=== PATIENT | female | born 1965 | race African-American/Black ===

== ENCOUNTER 2017-07-19 09:43 | Inpatient (IN) | payer BC ==
[~2017-07-19] VITALS: Ht 167.6 cm; Wt 124.7 kg
[2017-07-19] MEDS ORDERED: IPRATROPIUM/ALBUTEROL 0.5-3(2.5)MG/3ML NEB HHN ONE (10:15)
[2017-07-19 10:59] LABS: BASOPHILS % 0.9 % (0.0-2.0); EOSINOPHILS % 6.2 % (0.0-5.0); HEMATOCRIT. 38.9 % (36.0-48.0); HEMOGLOBIN. 12.5 g/dL (12.0-16.0); LYMPHOCYTES % 28.6 % (20.0-50.0); MEAN CORPUSCULAR HEMOGLOBIN 25.2 pg (28.0-32.0); MEAN CORPUSCULAR VOLUME 78.3 fL (81.0-99.0); MEAN PLATELET VOLUME 8.9 fl (7.4-10.4); MONOCYTES % 8.8 % (2.0-8.0); NEUTROPHILS % 55.5 % (40.0-76.0); PLATELET 210 x1000/uL (130-400); RED BLOOD CELL COUNT 4.97 mill/uL (4.2-5.4); RED CELL DISTRIBUTION WIDTH 14.8 % (11.6-14.6)
[2017-07-19 11:17] LABS: CARBON DIOXIDE 27 mEq/L (21-32); CHLORIDE 103 mEq/L (98-107); D-DIMER 0.34 mg/L FEU (<0.50); INR 1.1; PARTIAL THROMBOPLASTIN TIME 27.8 sec (23.4-31.0); PROTHROMBIN TIME 11.1 sec (9.4-11.6); TROPONIN I 0.09 ng/mL (0.00-0.04)
[2017-07-19 11:24] LABS: CLARITY URINE CLOUDY (CLEAR); COLOR URINE YELLOW (YELLOW); GLUCOSE URINE NEGATIVE (NEGATIVE); KETONES URINE NEGATIVE (NEGATIVE); LEUKOCYTE ESTERASE URINE NEGATIVE (NEGATIVE); NITRITE URINE NEGATIVE (NEGATIVE); OCCULT BLOOD URINE NEGATIVE (NEGATIVE); PROTEIN URINE 2+ (NEGATIVE); UROBILINOGEN URINE 0.2 E.U./dL (0.2-1.0)
[2017-07-19 16:39] VITALS: BP 127/77
[2017-07-19] MEDS ORDERED: LABE100T PO (16:57)
[2017-07-19] MEDS ORDERED: ERGO500013 PO (16:57)
[2017-07-19] MEDS ORDERED: AMLO5TAB88 PO (16:57)
[2017-07-19] MEDS ORDERED: LISI40TA4 PO (16:57)
[2017-07-19] MEDS ORDERED: CIPR-264 PO (16:57)
[2017-07-19] MEDS ORDERED: VALS320T2 PO (16:57)
[2017-07-19] MEDS ORDERED: OMEP20CA10 PO (16:57)
[2017-07-19] MEDS ORDERED: CYCL5TAB PO (16:57)
[2017-07-19] MEDS ORDERED: HYDR25TA PO (16:57)
[2017-07-19] MEDS ORDERED: ATOR10TA69 PO (16:57)
[2017-07-19] MEDS ORDERED: ALBUTEROL (0.083%) 2.5MG/3ML NEB HHN PRN (18:45)
[2017-07-19 20:00] VITALS: BP 145/82
[2017-07-19] MEDS ORDERED: HYDR28CR68 TP (20:44)
[2017-07-19] MEDS: ALBUTEROL (0.083%) 2.5MG/3ML NEB HHN SCH (21:14)
[2017-07-19] MEDS: HYDROCHLOROTHIAZIDE 25MG TABLET PO SCH (21:30)
[2017-07-19] MEDS ORDERED: LABETALOL HCL 100MG TABLET PO SCH (21:30)
[2017-07-19] MEDS ORDERED: OMEPRAZOLE 20MG CAPSULE EXTENDED RELEASE PO SCH (22:00)
[2017-07-19] MEDS: AMLODIPINE 5MG TABLET PO SCH (22:08)
[2017-07-19] MEDS: LISINOPRIL 40MG TABLET PO SCH (22:09)
[2017-07-19] MEDS: CYCLOBENZAPRINE 10MG TABLET PO PRN (22:10)
[2017-07-19] MEDS: CEFTRIAXONE 1 G PREMIX 50 ML IV SCH (22:14)
[2017-07-19] MEDS ORDERED: LORAZEPAM 0.5MG TABLET PO PRN (23:00)
[2017-07-19] MEDS ORDERED: ACETAMINOPHEN 325MG TABLET PO PRN (23:00)
[2017-07-19] MEDS ORDERED: CLONIDINE 0.1MG TABLET PO PRN (23:00)
[2017-07-19] MEDS ORDERED: DOCUSATE SODIUM 100MG CAPSULE PO PRN (23:00)
[2017-07-19] MEDS ORDERED: ACETAMINOPHEN 650MG/20.3ML UDC GT PRN (23:00)
[2017-07-19] MEDS ORDERED: MECLIZINE 12.5MG TABLET PO PRN (23:00)
[2017-07-19] MEDS ORDERED: NA PHOS,M-B/NA PHOS,DI-BA ENEMA 118ML PR PRN (23:00)
[2017-07-19] MEDS ORDERED: ONDANSETRON HCL 4MG/2ML VIAL IV PRN (23:00)
[2017-07-19] MEDS ORDERED: MAGNESIUM/ALUMINUM HYDROXIDE/SIMETHICONE 30ML UDC PO PRN (23:00)
[2017-07-19] MEDS ORDERED: ACETAMINOPHEN 650MG SUPP PR PRN (23:00)
[2017-07-19] MEDS ORDERED: DIPHENHYDRAMINE 50MG/ML VIAL IV PRN (23:00)
[2017-07-19] MEDS ORDERED: IPRATROPIUM/ALBUTEROL 0.5-3(2.5)MG/3ML NEB INH PRN (23:00)
[2017-07-20] VITALS: BP 140/88
[2017-07-20] MEDS ORDERED: MAGNESIUM HYDROXIDE 400MG/5ML 30ML UDC PO NR
[2017-07-20] MEDS: FUROSEMIDE 40MG/4ML VIAL IV SCH ×2 (01:00→09:21)
[2017-07-20] MEDS: ALBUTEROL (0.083%) 2.5MG/3ML NEB HHN SCH ×4 (01:01→20:30)
[2017-07-20] MEDS: GUAIFENESIN 200MG/10ML SUGAR FREE UDC PO PRN ×3 (01:05→20:21)
[2017-07-20 04:00] VITALS: BP 129/75
[2017-07-20 05:43] LABS: BASOPHILS % 0.7 % (0.0-2.0); EOSINOPHILS % 6.1 % (0.0-5.0); HEMATOCRIT. 37.5 % (36.0-48.0); HEMOGLOBIN. 12.1 g/dL (12.0-16.0); LYMPHOCYTES % 32.8 % (20.0-50.0); MEAN CORPUSCULAR VOLUME 77.5 fL (81.0-99.0); MEAN PLATELET VOLUME 9.3 fl (7.4-10.4); MONOCYTES % 8.7 % (2.0-8.0); NEUTROPHILS % 51.7 % (40.0-76.0); PLATELET 222 x1000/uL (130-400); RED BLOOD CELL COUNT 4.84 mill/uL (4.2-5.4); RED CELL DISTRIBUTION WIDTH 14.9 % (11.6-14.6)
[2017-07-20 05:49] LABS: CLARITY URINE CLEAR (CLEAR); COLOR URINE YELLOW (YELLOW); GLUCOSE URINE NEGATIVE (NEGATIVE); KETONES URINE NEGATIVE (NEGATIVE); LEUKOCYTE ESTERASE URINE NEGATIVE (NEGATIVE); NITRITE URINE NEGATIVE (NEGATIVE); OCCULT BLOOD URINE NEGATIVE (NEGATIVE); PROTEIN URINE NEGATIVE (NEGATIVE); SPECIFIC GRAVITY URINE 1.012 (1.005-1.030); UROBILINOGEN URINE 0.2 E.U./dL (0.2-1.0)
[2017-07-20] MEDS ORDERED: OMEPRAZOLE 20MG CAPSULE EXTENDED RELEASE PO SCH (06:45)
[2017-07-20 06:58] LABS: CARBON DIOXIDE 28 mEq/L (21-32); CHLORIDE 97 mEq/L (98-107)
[2017-07-20 07:04] LABS: CREATINE KINASE 101 IU/L (26-192); HDL CHOLESTEROL 41 mg/dL (40-59); LDL CHOLESTEROL 123 mg/dL (5-100)
[2017-07-20 07:08] LABS: *AMPHETAMINES SCREEN URINE NEGATIVE (NEGATIVE); *BARBITURATES SCREEN URINE NEGATIVE (NEGATIVE); *BENZODIAZEPINES SCREEN URINE NEGATIVE (NEGATIVE); *COCAINE SCREEN URINE NEGATIVE (NEGATIVE); CANNABINOID URINE SCREEN NEGATIVE (NEGATIVE); METHADONE URINE SCREEN NEGATIVE (NEGATIVE); OPIATES URINE SCREEN NEGATIVE (NEGATIVE); PHENCYCLIDINE URINE SCREEN NEGATIVE (NEGATIVE)
[2017-07-20 08:00] VITALS: BP 132/91
[2017-07-20] MEDS ORDERED: POTASSIUM CHLORIDE 20MEQ TABLET SR PO SCH (08:30)
[2017-07-20] MEDS: HYDROCHLOROTHIAZIDE 25MG TABLET PO SCH ×3 (09:00→20:31)
[2017-07-20] MEDS: AMLODIPINE 5MG TABLET PO SCH (09:00)
[2017-07-20] MEDS: LISINOPRIL 40MG TABLET PO SCH ×2 (09:19→20:18)
[2017-07-20] MEDS: LABETALOL HCL 100MG TABLET PO SCH ×2 (09:19→20:18)
[2017-07-20] MEDS: ENOXAPARIN 30MG/0.3ML SYR SUBCUT SCH ×2 (09:21→20:19)
[2017-07-20 12:00] VITALS: BP 96/56
[2017-07-20] MEDS ORDERED: CEPH-569 PO (12:06)
[2017-07-20 16:00] VITALS: BP 122/78
[2017-07-20 16:51] LABS: TROPONIN I 0.09 ng/mL (0.00-0.04)
[2017-07-20 20:00] VITALS: BP 135/90
[2017-07-20] MEDS: CEFTRIAXONE 1 G PREMIX 50 ML IV SCH (20:17)
[2017-07-20] MEDS: HYDROCODONE/ACETAMINOPHEN 5/325MG TABLET PO PRN (20:19)
[2017-07-20] MEDS: SODIUM CHLORIDE 0.9% INJ 3ML FLUSH IVF SCH (20:20)
[2017-07-20] MEDS: THROAT LOZENGES-BENZOCAINE/MENTH/CETYLPYRD CL LOZENGES MM PRN (20:21)
[2017-07-20] MEDS ORDERED: ATORVASTATIN CALCIUM 10MG TABLET PO SCH (21:00)
[2017-07-21] VITALS: BP 100/59
[2017-07-21] MEDS: ALBUTEROL (0.083%) 2.5MG/3ML NEB HHN SCH ×3 (00:38→13:59)
[2017-07-21] MEDS: HYDROCODONE/ACETAMINOPHEN 5/325MG TABLET PO PRN (01:26)
[2017-07-21 04:00] VITALS: BP 127/80
[2017-07-21 05:41] LABS: BASOPHILS % 0.9 % (0.0-2.0); HEMATOCRIT. 35.6 % (36.0-48.0); HEMOGLOBIN. 11.4 g/dL (12.0-16.0); LYMPHOCYTES % 37.5 % (20.0-50.0); MEAN CORPUSCULAR VOLUME 78.2 fL (81.0-99.0); MEAN PLATELET VOLUME 9.2 fl (7.4-10.4); MONOCYTES % 9.7 % (2.0-8.0); NEUTROPHILS % 45.9 % (40.0-76.0); PLATELET 219 x1000/uL (130-400); RED BLOOD CELL COUNT 4.55 mill/uL (4.2-5.4); RED CELL DISTRIBUTION WIDTH 15.2 % (11.6-14.6)
[2017-07-21 06:28] LABS: CARBON DIOXIDE 29 mEq/L (21-32); CHLORIDE 102 mEq/L (98-107)
[2017-07-21] MEDS: SODIUM CHLORIDE 0.9% INJ 3ML FLUSH IVF SCH ×2 (07:36→17:19)
[2017-07-21 08:00] VITALS: BP 108/61
[2017-07-21] MEDS: LABETALOL HCL 100MG TABLET PO SCH (09:00)
[2017-07-21] MEDS: LISINOPRIL 40MG TABLET PO SCH (09:00)
[2017-07-21] MEDS: HYDROCHLOROTHIAZIDE 25MG TABLET PO SCH (09:00)
[2017-07-21] MEDS: AMLODIPINE 5MG TABLET PO SCH (09:00)
[2017-07-21] MEDS: FUROSEMIDE 40MG/4ML VIAL IV SCH (09:22)
[2017-07-21] MEDS: ENOXAPARIN 30MG/0.3ML SYR SUBCUT SCH (09:22)
[2017-07-21 12:00] VITALS: BP 142/86
[2017-07-21] MEDS: THROAT LOZENGES-BENZOCAINE/MENTH/CETYLPYRD CL LOZENGES MM PRN (13:11)
[2017-07-21] MEDS: CYCLOBENZAPRINE 10MG TABLET PO PRN (13:13)
[2017-07-21] MEDS: GUAIFENESIN 200MG/10ML SUGAR FREE UDC PO PRN (15:16)
[2017-07-21 16:00] VITALS: BP 128/81
[2017-07-21 18:21] VITALS: BP 128/81
[2017-07-22] MEDS ORDERED: ERGOCALCIFEROL 50000UNITS CAPSULE PO SCH (09:00)
== END 2017-07-21 19:08 | disposition home or self-care (01) | DRG 871 ==
LOC: ER 10:27 → 5WST 14:16 → EDBEDREQ 14:18 → ENRESERV 14:41
PROVIDERS: ADMIT Family Medicine; ATTEND Family Medicine
PROC: 5A09357 Assistance with Respiratory Ventilation, Less than 24 Consecutive Hours, Continuous Positive Airway Pressure (ICD-10-PCS; principal; 2017-07-21)
DX: A41.9 Sepsis, unspecified organism (principal); J96.00 Acute respiratory failure, unspecified whether with hypoxia or hypercapnia; J18.9 Pneumonia, unspecified organism; N39.0 Urinary tract infection, site not specified; Z68.41 Body mass index [BMI] 40.0-44.9, adult; I11.9 Hypertensive heart disease without heart failure; E66.9 Obesity, unspecified; E78.5 Hyperlipidemia, unspecified; G47.33 Obstructive sleep apnea (adult) (pediatric); M19.90 Unspecified osteoarthritis, unspecified site; R73.9 Hyperglycemia, unspecified; E78.00 Pure hypercholesterolemia, unspecified; Z82.49 Family history of ischemic heart disease and other diseases of the circulatory system
CPT/HCPCS: 36415; 71010; 80048; 80053; 80061; 80305; 81001; 81003; 82550; 83036; 83605; 83880; 84484; 85025; 85379; 85610; 85730; 87040; 87077; 87086; 87186; 93005; 93306; 94640; 94660; 94664; 99285; J0696; J1650; J1940; J7050; J7611; J7620